=== PATIENT | female | born 1960 | race Caucasian/White ===

== ENCOUNTER 2024-09-13 21:43 | Emergency (ER) | payer SELFPAY ==
--- NOTE | 2024-09-13 22:02 | EKG_ITS ---
[address] [address] Test Date: 2024-09-13 Pat Name: Amy Vargas Department: [facility] Room: Gender: Female [facility] Manager: ANTONIO : 1960 Requested By: Order Number: [id number] Reading MD: Tim Vargas Measurements Intervals [place] Rate: 95 P: 44 RI: 180 QRS: -15 QRSD: 78 T: 8 QT: 364 QTc: 457 Interpretive Statements Normal sinus rhythm Nonspecific ST abnormality Electronically Signed On 09-14-2024 18:29:40 PDT by Tim Vargas
--- NOTE | 2024-09-13 22:02 | DI.RAD.S_ITS ---
PROCEDURE: XR CHEST 1V INDICATIONS: sepsis TECHNIQUE: One view of the chest was acquired. COMPARISON: None. FINDINGS: Surgical changes and devices: None. Lungs and pleura: Lungs are clear. No pleural effusions or pneumothorax. Mediastinum: Mediastinal contours appear normal. Heart size is normal. Bones and chest wall: No suspicious bony lesions. Overlying soft tissues appear unremarkable. IMPRESSION: No acute pulmonary process. Dictated by: Marjorie Hurst M.D. on 09/13/2024 at 22:57 Approved by: Marjorie Hurst M.D. on 09/13/2024 at 22:57
--- NOTE | 2024-09-13 22:02 | DI.CT.S_ITS ---
PROCEDURE: CT LE LT W CON INDICATIONS: Osteomyelitis/abscess TECHNIQUE: After the administration of intravenous contrast, 3 mm axial sections acquired of the lower extremity , with coronal and sagittal reformats. COMPARISON: None. FINDINGS: Image quality: Excellent. Bones: No visualized fracture. No suspicious osseous lesions. Soft tissues: Stranding is present within the subcutaneous fat. No organized fluid collection. No abnormal enhancement within the musculature. Vascular structures appear patent. Prominent soft tissue surrounding the distal 1st phalanx. IMPRESSION: Soft tissue stranding most consistent with infection/inflammation such as cellulitis. No organized fluid collection. 1st digit soft tissue edema. No underlying osseous abnormality to suggest osteomyelitis. Dictated by: Marjorie Hurst M.D. on 09/14/2024 at 0:00 Approved by: Marjorie Hurst M.D. on 09/14/2024 at 0:02
--- NOTE | 2024-09-13 22:02 | DI.CT.S_ITS ---
PROCEDURE: CT ABDOMEN PELVIS W CON INDICATIONS: vomiting TECHNIQUE: After the administration of intravenous contrast, axial sections acquired from the lung bases to the pubic symphysis. Coronal and sagittal reformats were performed. For radiation dose reduction, the following was used: automated exposure control, adjustment of mA and/or kV according to patient size. COMPARISON: [facility], CT, CT ANGIO CHEST PE PROTOCOL, 09/13/2024, 23:01. FINDINGS: Image quality: Diagnostic. Lower Chest: No significant findings. ABDOMEN: Liver: No solid mass. Gallbladder: Removed. Biliary ducts: No biliary dilation. Pancreas: No ductal dilation. Spleen: Size is within normal limits. Adrenal Glands: Nonspecific mild left gland thickening. Kidneys and Ureters: No hydronephrosis. No solid mass. No complex renal cystic lesion which requires follow up. Stomach and Bowel: Normal colonic caliber, without significant wall thickening. Scattered colonic stool. No inflammatory change. Peritoneum: No abnormal intraperitoneal fluid. No free air. Ventral Wall: No significant ventral hernia. Abdominal Nodes: No retroperitoneal or mesenteric adenopathy by size criteria. Vessels: Aorta and inferior vena cava are normal in size. PELVIS: Pelvic Organs: Unremarkable. Bladder: No bladder wall thickening, accounting for underdistention. Pelvic Nodes: No enlarged lymph nodes. Miscellaneous: No inguinal hernias are seen. Bones: No aggressive osseous abnormality. IMPRESSION: No acute intra-abdominal or pelvic process. Dictated by: Marjorie Hurst M.D. on 09/13/2024 at 23:58 Approved by: Marjorie Hurst M.D. on 09/14/2024 at 0:00
[2024-09-13 22:10] VITALS: BP 166/74; PULSE 105; RESP 18; TEMP 36.6; O2SAT 98; BMI 25.8
[2024-09-13 22:37] LABS: Add Manual Diff / Slide Review NO; Hematocrit 35.5 % (36-46); Hemoglobin 11.4 g/dL (12.0-16.0); Lymphocytes Absolute Auto 2600 /uL (1100-4500); Mean Corpuscular HGB Conc 32.1 % (30-36); Mean Corpuscular Hemoglobin 26.1 PG (26-34); Mean Corpuscular Volume 81.2 fL (80-100); Platelet Count 165 X10^3/uL (150-400)
[2024-09-13 22:42] LABS: INR 0.9 (0.9-1.3); Prothrombin Time 10.4 SECONDS (9.4-12.5)
[2024-09-13] MEDS: SODIUM CHLORIDE 0.9% 1,000 ML 1000 ML IV (22:42)
[2024-09-13 22:45] LABS: Base Excess VBG -2.5 mmol/L (0-4); HCO3 VBG 21 mmol/L (24-28); Oxygen Saturation VBG 92 % (70-75); PCO2 VBG 31.1 mmHg (45-50); PO2 VBG 59 mmHg (35-45); Total CO2 VBG 20 mmol/L (24-29); pH VBG 7.44 (7.33-7.43)
[2024-09-13 22:46] LABS: Alanine Aminotransferase 33 IU/L (<35); Albumin 3.9 g/dL (3.5-5.0); Albumin Globulin Ratio 1.3 (1.0-2.8); Blood Urea Nitrogen 17 mg/dL (7-17); Calcium 8.9 mg/dL (8.4-10.2); Carbon Dioxide 23 mmol/L (22-32); Chloride 104 mmol/L (98-107); Estimated Glomerular Filt Rate > 60 mL/min (>60); Globulin 3.0 g/dL (1.7-4.1); Glucose 433 mg/dL (70-99); Lactate (Lactic Acid) 1.5 mmol/L (0.7-2.1); Sodium 135 mmol/L (137-145); Total Protein 6.9 g/dL (6.3-8.2)
--- NOTE | 2024-09-13 22:49 | DI.CT.S_ITS ---
PROCEDURE: CT ANGIO CHEST PE PROTOCOL INDICATIONS: RO PE TECHNIQUE: After the administration of intravenous contrast, 2 mm thick sections acquired from the pulmonary apices to the posterior costophrenic angles. 3-dimensional maximum intensity projection (MIP) coronal and sagittal reformats were then acquired through the thorax. For radiation dose reduction, the following was used: automated exposure control, adjustment of mA and/or kV according to patient size. COMPARISON: None. FINDINGS: Image quality: Diagnostic. Pulmonary arteries: Pulmonary arteries are normal in size, and demonstrate no intraluminal filling defects to suggest central pulmonary embolism. Lower Neck: No enlarged lymph nodes. Thyroid: No thyroid nodules which require sonographic follow up, per consensus guidelines. Axillae: No enlarged lymph nodes. Chest Wall: Unremarkable. Bones: Unremarkable. Lungs and Pleura: No pneumothorax or pleural effusions. No consolidation or suspicious nodules. Heart: Heart size is normal. No pericardial effusion. Thoracic Vessels: No aortic aneurysm. Mediastinum and Debora: No enlarged lymph nodes. Esophagus: No wall thickening. No hiatal hernia. Upper Abdomen: Slight thickening of the left adrenal gland. IMPRESSION: No pulmonary embolus. No acute cardiopulmonary process. Dictated by: Marjorie Hurst M.D. on 09/13/2024 at 23:57 Approved by: Marjorie Hurst M.D. on 09/13/2024 at 23:58
[2024-09-13 22:51] LABS: HEMOLYSIS 58 (0-50)
[2024-09-13 22:52] LABS: Alkaline Phosphatase 82 U/L (38-126); Ketones (Beta-Hydroxybutyrate) 0.12 mmol/L (<0.27); PTT Partial Thromboplastin Tim 20 SECONDS (25.1-36.5); Potassium 4.0 mmol/L (3.4-5.1)
[2024-09-13 23:05] LABS: Procalcitonin 0.049 ng/mL (<0.5)
[2024-09-13 23:28] LABS: Coronavirus NL 63 Not Detected (Not Detect); SARS- CoV-2 Not Detected (Not Detecte)
[2024-09-13 23:37] VITALS: PULSE 187
[2024-09-13 23:43] VITALS: BP 208/84; PULSE 96; RESP 18; O2SAT 99
--- NOTE | 2024-09-13 23:47 | DI.US.S_ITS ---
PROCEDURE: US PERIPH VENOUS LOW EXTREM BI INDICATIONS: dimer, RO DVT TECHNIQUE: Real-time imaging, as well as color and pulse Doppler interrogation, were performed of the deep veins of both legs from the inguinal ligament to the popliteal fossa, with documentation of the visualized calf veins. COMPARISON: None. FINDINGS: Right: The common femoral, femoral, popliteal, and the visualized calf veins are normally compressible, and free of intraluminal thrombus. Color and pulse Doppler demonstrate normal phasic intravascular flow. There is normal augmentation response to distal compression maneuver. Left: The common femoral, femoral, popliteal, and the visualized calf veins are normally compressible, and free of intraluminal thrombus. Color and pulse Doppler demonstrate normal phasic intravascular flow. There is normal augmentation response to distal compression maneuver. IMPRESSION: No findings of deep venous thrombosis in either lower extremity. Dictated by: Marjorie Hurst M.D. on 09/14/2024 at 0:46 Approved by: Marjorie Hurst M.D. on 09/14/2024 at 0:46
[2024-09-13 23:57] LABS: Bilirubin Urine UA NEGATIVE (NEGATIVE); Color Urine UA YELLOW; Glucose Urine UA 3+ g/dL (Negative); Ketones Urine UA TRACE (NEGATIVE); Leukocyte Esterase Urine UA NEGATIVE (NEGATIVE); Nitrite Urine UA POSITIVE (Negative); Occult Blood Urine UA NEGATIVE (Negative); Protein Urine UA NEGATIVE (Negative); Specific Gravity Urine UA 1.015 (1.000-1.035); Urobilinogen Urine UA 0.2 E.U./dL (0.2)
[2024-09-14] VITALS (21 sets, daily range): BP systolic 114–191; BP diastolic 55–84; PULSE 67–97; RESP 10–26; O2SAT 92–99
[2024-09-14 00:04] LABS: Appearance Urine UA SL CLOUDY; pH Urine UA 5.5 (4.5-8.0)
[2024-09-14 00:09] LABS: Culture Indicated Urine Specimen Cultured
[2024-09-14] MEDS: SODIUM CHLORIDE 0.9% 1,000 ML 1000 ML IV (00:30)
[2024-09-14] MEDS: INSULIN REGULAR 100 UNIT/ML 3 ML VIAL 10 UNIT IV (00:31)
[2024-09-14] MEDS: ONDANSETRON 4 MG/2 ML INJ IV (04:47)
[2024-09-14] MEDS: VANCOMYCIN 1,500 MG/300 ML PIGGYBACK 200 MG IV (06:08)
--- NOTE | 2024-09-14 06:34 | ED.WOUNDLAC ---
HPI - Wound/Laceration <Gume Call MD - Last Filed: 09/14/24 06:37> General Chief Complaint: Wound/Laceration Stated Complaint: hyperglycemia, swelling in Lt foot Time Seen by Provider: 09/13/24 22:02 Source: patient Mode of arrival: Wheelchair History of Present Illness HPI narrative: PLEASANT 64-YEAR-OLD WOMAN WITH A HISTORY OF TYPE 1 DIABETES FOR MANY DECADES COMES TO THE ER BECAUSE OF PAIN AND SWELLING IN HER LEFT FOOT WELL A WOUND THERE. SHE DENIES ANY FEVER CHILLS OR SWEATS BUT ADMITS TO SOME NAUSEA BUT NO VOMITING. SHE HAS NO OTHER CONCERNS OR COMPLAINTS AT THIS TIME EXCEPT HER BLOOD SUGAR HAS BEEN MORE DIFFICULT TO CONTROL AT HOME. Related Data Previous Rx's ?Medication ?Instructions ?Recorded doxycycline hyclate 100 mg capsule 100 mg PO BID 1 week #14 caps 09/14/24 ciprofloxacin HCl 500 mg tablet 500 mg PO BID #14 tabs 09/16/24 Allergies Allergy/AdvReac Type Severity Reaction Status Date / Time latex Allergy Unknown Verified 09/13/24 22:10 morphine Allergy Unknown Verified 09/13/24 22:10 Penicillins Allergy Unknown Verified 09/13/24 22:10 Sulfa (Sulfonamide Allergy Unknown Verified 09/13/24 22:10 Antibiotics) hydromorphone (From Dilaudid) Allergy Verified 09/13/24 22:10 Patient History <Gume Call MD - Last Filed: 09/14/24 06:37> Social History Smoking Status: Never smoker Smoking Status: Never smoker Exam <Gume Call MD - Last Filed: 09/14/24 06:37> Initial Vital Signs Initial Vital Signs: Vital Signs Temperature 97.8 F 09/13/24 22:10 Pulse Rate 105 H 09/13/24 22:10 Respiratory Rate 18 09/13/24 22:10 Blood Pressure 166/74 H 09/13/24 22:10 Pulse Oximetry 98 09/13/24 22:10 Oxygen Delivery Method Room Air 09/13/24 22:10 Const General: cooperative, No in distress and ill appearing Limitations: mental status not altered [facility] Head: normal to inspection, normocephalic and atraumatic Ears: hearing grossly normal bilaterally Nose: external nose normal Face and sinus: normal facial exam Mouth: oral mucosae normal Eyes General: Yes appearance normal, both eyes and all related structures Neck Neck: normal visual inspection and No tender Resp Effort & Inspection: normal respiratory effort Auscultation: clear to auscultation bilaterally Cardio Rate: tachycardic Rhythm: regular rhythm Heart Sounds: S1 normal and S2 normal GI Inspection: normal to inspection Palpation: soft and No tender Skin Other: THERE IS A APPROXIMATELY 1 CM DIAMETER SCAB ON THE DORSUM OF THE LEFT FOOT IN BETWEEN THE 4TH AND 5TH DIGITS. THERE IS NO SURROUNDING ERYTHEMA OR WARMTH BUT THERE IS SOME PURULENT DRAINAGE EXPRESSED FROM THE WOUND. Neuro General: patient alert, patient awake and patient oriented x3 <Rafiq Nash DO - Last Filed: 09/14/24 08:21> Initial Vital Signs Initial Vital Signs: Vital Signs Temperature 97.8 F 09/13/24 22:10 Pulse Rate 105 H 09/13/24 22:10 Respiratory Rate 18 09/13/24 22:10 Blood Pressure 166/74 H 09/13/24 22:10 Pulse Oximetry 98 09/13/24 22:10 Oxygen Delivery Method Room Air 09/13/24 22:10 <Eloy Guajardo MD - Last Filed: 09/16/24 07:54> Initial Vital Signs Initial Vital Signs: Vital Signs Temperature 97.8 F 09/13/24 22:10 Pulse Rate 105 H 09/13/24 22:10 Respiratory Rate 18 09/13/24 22:10 Blood Pressure 166/74 H 09/13/24 22:10 Pulse Oximetry 98 09/13/24 22:10 Oxygen Delivery Method Room Air 09/13/24 22:10 Course <Gume Call MD - Last Filed: 09/14/24 06:37> Orders Ordered: Discontinued Medications Acetaminophen (Acetaminophen 325 Mg Tablet) 650 mg PO Q6H PRN PRN Reason: Fever/Mild Pain (1-3) Sodium Chloride (Normal Saline 0.9%) 1,000 mls @ 1,000 mls/hr IV CONT [facility] Last Infusion: 09/14/24 00:25 Dose: Infused Documented By: Admin: 09/13/24 22:42 Dose: 1,000 mls/hr Documented By: SOPHIA Sodium Chloride (Normal Saline 0.9%) 1,000 mls @ 1,000 mls/hr IV BOLUS ONE Stop: 09/14/24 00:13 Last Infusion: 09/14/24 02:44 Dose: Infused Documented By: Admin: 09/14/24 00:30 Dose: 1,000 mls/hr Documented By: AB Levofloxacin (Levaquin) 750 mg in 150 mls @ 100 mls/hr IV NOW ONE Stop: 09/14/24 04:12 Last Infusion: 09/14/24 04:53 Dose: Infused Documented By: Admin: 09/14/24 02:46 Dose: 100 mls/hr Documented By: AB Sodium Chloride (Normal Saline 0.9%) 1,000 mls @ 75 mls/hr IV CONT [facility] Last Admin: 09/14/24 03:53 Dose: Not Given Documented By: AB Piperacillin Sod/Tazobactam (Sod 3.375 gm/ Sodium Chloride) 100 mls @ 25 mls/hr IV Q8H [facility] Last Admin: 09/14/24 03:53 Dose: Not Given Documented By: AB Vancomycin HCl/Dextrose (Vancomycin) 1,500 mg in 300 mls @ 200 mls/hr IV NOW ONE Stop: 09/14/24 06:29 Last Infusion: 09/14/24 07:58 Dose: Infused Documented By: Admin: 09/14/24 06:08 Dose: 200 mls/hr Documented By: AB Insulin Human Lispro (Insulin Lispro 100 Unit/Ml 3ml Vial) 0 unit SUBCUT [facility]; Protocol Last Admin: 09/14/24 08:06 Dose: 3 unit Documented By: BEULAH Co-signed By: RB Insulin Human Regular (Insulin Regular 100 Unit/Ml 3 Ml Vial) 10 unit IV NOW ONE Stop: 09/13/24 23:45 Last Admin: 09/14/24 00:31 Dose: 10 unit Documented By: AB Co-signed By: HNG Naloxone HCl (Naloxone 0.4 Mg/Ml Vial) 0.2 mg IV Q2MIN PRN PRN Reason: Opiate Reversal Ondansetron HCl (Ondansetron 4 Mg/2 Ml Inj) 4 mg IV Q8HR PRN PRN Reason: Nausea And Vomiting Ondansetron HCl (Ondansetron 4 Mg/2 Ml Inj) 4 mg IV NOW ONE Stop: 09/14/24 04:15 Last Admin: 09/14/24 04:47 Dose: 4 mg Documented By: AB Vancomycin HCl (Vancomycin Per Pharmacy) 1 request MISC NOW PRN PRN Reason: diabetic foot infection Vital Signs Vital signs: Vital Signs - 8 hr 09/14/24 00:30 09/14/24 00:44 09/14/24 00:44 Pulse Rate 92 H 87 Respiratory Rate 26 H 19 Blood Pressure 153/80 H Pulse Oximetry 98 98 Oxygen Delivery Method 09/14/24 01:00 09/14/24 01:01 09/14/24 01:01 Pulse Rate 89 90 Respiratory Rate 18 17 Blood Pressure 118/56 L Pulse Oximetry 99 98 Oxygen Delivery Method 09/14/24 01:30 09/14/24 01:30 09/14/24 02:14 Pulse Rate 85 78 Respiratory Rate 16 15 Blood Pressure 139/67 Pulse Oximetry 99 98 Oxygen Delivery Method 09/14/24 02:30 09/14/24 02:30 09/14/24 03:00 Pulse Rate 68 Respiratory Rate 10 L Blood Pressure 114/55 L 114/56 L Pulse Oximetry 97 Oxygen Delivery Method 09/14/24 03:00 09/14/24 03:30 09/14/24 03:30 Pulse Rate 69 67 Respiratory Rate 11 L 14 Blood Pressure 117/56 L Pulse Oximetry 97 94 Oxygen Delivery Method Room Air 09/14/24 04:00 09/14/24 04:14 09/14/24 04:14 Pulse Rate 68 75 Respiratory Rate 19 14 Blood Pressure 164/74 H Pulse Oximetry 96 Oxygen Delivery Method 09/14/24 04:30 09/14/24 04:31 09/14/24 04:31 Pulse Rate 75 74 Respiratory Rate 15 13 Blood Pressure 140/68 Pulse Oximetry 96 96 Oxygen Delivery Method Room Air 09/14/24 05:00 09/14/24 05:00 09/14/24 05:30 Pulse Rate 77 Respiratory Rate 12 Blood Pressure 146/70 H 153/70 H Pulse Oximetry 95 Oxygen Delivery Method Room Air 09/14/24 05:30 09/14/24 06:00 09/14/24 06:00 Pulse Rate 77 77 Respiratory Rate 12 16 Blood Pressure 137/65 Pulse Oximetry 92 95 Oxygen Delivery Method 09/14/24 06:30 09/14/24 06:30 09/14/24 07:00 Pulse Rate 78 79 Respiratory Rate 16 16 Blood Pressure 118/56 L Pulse Oximetry 95 96 Oxygen Delivery Method 09/14/24 07:00 Pulse Rate Respiratory Rate Blood Pressure 132/67 Pulse Oximetry Oxygen Delivery Method <Rafiq Nahs, DO - Last Filed: 09/14/24 08:21> Orders Ordered: Discontinued Medications Acetaminophen (Acetaminophen 325 Mg Tablet) 650 mg PO Q6H PRN PRN Reason: Fever/Mild Pain (1-3) Sodium Chloride (Normal Saline 0.9%) 1,000 mls @ 1,000 mls/hr IV CONT [facility] Last Infusion: 09/14/24 00:25 Dose: Infused Documented By: Admin: 09/13/24 22:42 Dose: 1,000 mls/hr Documented By: SOPHIA Sodium Chloride (Normal Saline 0.9%) 1,000 mls @ 1,000 mls/hr IV BOLUS ONE Stop: 09/14/24 00:13 Last Infusion: 09/14/24 02:44 Dose: Infused Documented By: Admin: 09/14/24 00:30 Dose: 1,000 mls/hr Documented By: AB Levofloxacin (Levaquin) 750 mg in 150 mls @ 100 mls/hr IV NOW ONE Stop: 09/14/24 04:12 Last Infusion: 09/14/24 04:53 Dose: Infused Documented By: Admin: 09/14/24 02:46 Dose: 100 mls/hr Documented By: AB Sodium Chloride (Normal Saline 0.9%) 1,000 mls @ 75 mls/hr IV CONT [facility] Last Admin: 09/14/24 03:53 Dose: Not Given Documented By: AB Piperacillin Sod/Tazobactam (Sod 3.375 gm/ Sodium Chloride) 100 mls @ 25 mls/hr IV Q8H [facility] Last Admin: 09/14/24 03:53 Dose: Not Given Documented By: AB Vancomycin HCl/Dextrose (Vancomycin) 1,500 mg in 300 mls @ 200 mls/hr IV NOW ONE Stop: 09/14/24 06:29 Last Infusion: 09/14/24 07:58 Dose: Infused Documented By: Admin: 09/14/24 06:08 Dose: 200 mls/hr Documented By: AB Insulin Human Lispro (Insulin Lispro 100 Unit/Ml 3ml Vial) 0 unit [facility]UT [facility]; Protocol Last Admin: 09/14/24 08:06 Dose: 3 unit Documented By: BEULAH Co-signed By: RB Insulin Human Regular (Insulin Regular 100 Unit/Ml 3 Ml Vial) 10 unit IV NOW ONE Stop: 09/13/24 23:45 Last Admin: 09/14/24 00:31 Dose: 10 unit Documented By: Co-signed By: JOSEPH Naloxone HCl (Naloxone 0.4 Mg/Ml Vial) 0.2 mg IV Q2MIN PRN PRN Reason: Opiate Reversal Ondansetron HCl (Ondansetron 4 Mg/2 Ml Inj) 4 mg IV Q8HR PRN PRN Reason: Nausea And Vomiting Ondansetron HCl (Ondansetron 4 Mg/2 Ml Inj) 4 mg IV NOW ONE Stop: 09/14/24 04:15 Last Admin: 09/14/24 04:47 Dose: 4 mg Documented By: Vancomycin HCl (Vancomycin Per Pharmacy) 1 request MISC NOW PRN PRN Reason: diabetic foot infection Vital Signs Vital signs: Vital Signs - 8 hr 09/14/24 00:30 09/14/24 00:44 09/14/24 00:44 Pulse Rate 92 H 87 Respiratory Rate 26 H 19 Blood Pressure 153/80 H Pulse Oximetry 98 98 Oxygen Delivery Method 09/14/24 01:00 09/14/24 01:01 09/14/24 01:01 Pulse Rate 89 90 Respiratory Rate 18 17 Blood Pressure 118/56 L Pulse Oximetry 99 98 Oxygen Delivery Method 09/14/24 01:30 09/14/24 01:30 09/14/24 02:14 Pulse Rate 85 78 Respiratory Rate 16 15 Blood Pressure 139/67 Pulse Oximetry 99 98 Oxygen Delivery Method 09/14/24 02:30 09/14/24 02:30 09/14/24 03:00 Pulse Rate 68 Respiratory Rate 10 L Blood Pressure 114/55 L 114/56 L Pulse Oximetry 97 Oxygen Delivery Method 09/14/24 03:00 09/14/24 03:30 09/14/24 03:30 Pulse Rate 69 67 Respiratory Rate 11 L 14 Blood Pressure 117/56 L Pulse Oximetry 97 94 Oxygen Delivery Method Room Air 09/14/24 04:00 09/14/24 04:14 09/14/24 04:14 Pulse Rate 68 75 Respiratory Rate 19 14 Blood Pressure 164/74 H Pulse Oximetry 96 Oxygen Delivery Method 09/14/24 04:30 09/14/24 04:31 09/14/24 04:31 Pulse Rate 75 74 Respiratory Rate 15 13 Blood Pressure 140/68 Pulse Oximetry 96 96 Oxygen Delivery Method Room Air 09/14/24 05:00 09/14/24 05:00 09/14/24 05:30 Pulse Rate 77 Respiratory Rate 12 Blood Pressure 146/70 H 153/70 H Pulse Oximetry 95 Oxygen Delivery Method Room Air 09/14/24 05:30 09/14/24 06:00 09/14/24 06:00 Pulse Rate 77 77 Respiratory Rate 12 16 Blood Pressure 137/65 Pulse Oximetry 92 95 Oxygen Delivery Method 09/14/24 06:30 09/14/24 06:30 09/14/24 07:00 Pulse Rate 78 79 Respiratory Rate 16 16 Blood Pressure 118/56 L Pulse Oximetry 95 96 Oxygen Delivery Method 09/14/24 07:00 Pulse Rate Respiratory Rate Blood Pressure 132/67 Pulse Oximetry Oxygen Delivery Method <Eloy Guajardo MD - Last Filed: 09/16/24 07:54> Orders Ordered: Discontinued Medications Acetaminophen (Acetaminophen 325 Mg Tablet) 650 mg PO Q6H PRN PRN Reason: Fever/Mild Pain (1-3) Sodium Chloride (Normal Saline 0.9%) 1,000 mls @ 1,000 mls/hr IV CONT [facility] Last Infusion: 09/14/24 00:25 Dose: Infused Documented By: Admin: 09/13/24 22:42 Dose: 1,000 mls/hr Documented By: SOPHIA Sodium Chloride (Normal Saline 0.9%) 1,000 mls @ 1,000 mls/hr IV BOLUS ONE Stop: 09/14/24 00:13 Last Infusion: 09/14/24 02:44 Dose: Infused Documented By: Admin: 09/14/24 00:30 Dose: 1,000 mls/hr Documented By: AB Levofloxacin (Levaquin) 750 mg in 150 mls @ 100 mls/hr IV NOW ONE Stop: 09/14/24 04:12 Last Infusion: 09/14/24 04:53 Dose: Infused Documented By: Admin: 09/14/24 02:46 Dose: 100 mls/hr Documented By: AB Sodium Chloride (Normal Saline 0.9%) 1,000 mls @ 75 mls/hr IV CONT [facility] Last Admin: 09/14/24 03:53 Dose: Not Given Documented By: AB Piperacillin Sod/Tazobactam (Sod 3.375 gm/ Sodium Chloride) 100 mls @ 25 mls/hr IV Q8H [facility] Last Admin: 09/14/24 03:53 Dose: Not Given Documented By: AB Vancomycin HCl/Dextrose (Vancomycin) 1,500 mg in 300 mls @ 200 mls/hr IV NOW ONE Stop: 09/14/24 06:29 Last Infusion: 09/14/24 07:58 Dose: Infused Documented By: Admin: 09/14/24 06:08 Dose: 200 mls/hr Documented By: Insulin Human Lispro (Insulin Lispro 100 Unit/Ml 3ml Vial) 0 unit SUBCUT [facility]; Protocol Last Admin: 09/14/24 08:06 Dose: 3 unit Documented By: BEULAH Co-signed By: RB Insulin Human Regular (Insulin Regular 100 Unit/Ml 3 Ml Vial) 10 unit IV NOW ONE Stop: 09/13/24 23:45 Last Admin: 09/14/24 00:31 Dose: 10 unit Documented By: Co-signed By: JOSEPH Naloxone HCl (Naloxone 0.4 Mg/Ml Vial) 0.2 mg IV Q2MIN PRN PRN Reason: Opiate Reversal Ondansetron HCl (Ondansetron 4 Mg/2 Ml Inj) 4 mg IV Q8HR PRN PRN Reason: Nausea And Vomiting Ondansetron HCl (Ondansetron 4 Mg/2 Ml Inj) 4 mg IV NOW ONE Stop: 09/14/24 04:15 Last Admin: 09/14/24 04:47 Dose: 4 mg Documented By: Vancomycin HCl (Vancomycin Per Pharmacy) 1 request MISC NOW PRN PRN Reason: diabetic foot infection Vital Signs Vital signs: Vital Signs - 8 hr 09/14/24 00:30 09/14/24 00:44 09/14/24 00:44 Pulse Rate 92 H 87 Respiratory Rate 26 H 19 Blood Pressure 153/80 H Pulse Oximetry 98 98 Oxygen Delivery Method 09/14/24 01:00 09/14/24 01:01 09/14/24 01:01 Pulse Rate 89 90 Respiratory Rate 18 17 Blood Pressure 118/56 L Pulse Oximetry 99 98 Oxygen Delivery Method 09/14/24 01:30 09/14/24 01:30 09/14/24 02:14 Pulse Rate 85 78 Respiratory Rate 16 15 Blood Pressure 139/67 Pulse Oximetry 99 98 Oxygen Delivery Method 09/14/24 02:30 09/14/24 02:30 09/14/24 03:00 Pulse Rate 68 Respiratory Rate 10 L Blood Pressure 114/55 L 114/56 L Pulse Oximetry 97 Oxygen Delivery Method 09/14/24 03:00 09/14/24 03:30 09/14/24 03:30 Pulse Rate 69 67 Respiratory Rate 11 L 14 Blood Pressure 117/56 L Pulse Oximetry 97 94 Oxygen Delivery Method Room Air 09/14/24 04:00 09/14/24 04:14 09/14/24 04:14 Pulse Rate 68 75 Respiratory Rate 19 14 Blood Pressure 164/74 H Pulse Oximetry 96 Oxygen Delivery Method 09/14/24 04:30 09/14/24 04:31 09/14/24 04:31 Pulse Rate 75 74 Respiratory Rate 15 13 Blood Pressure 140/68 Pulse Oximetry 96 96 Oxygen Delivery Method Room Air 09/14/24 05:00 09/14/24 05:00 09/14/24 05:30 Pulse Rate 77 Respiratory Rate 12 Blood Pressure 146/70 H 153/70 H Pulse Oximetry 95 Oxygen Delivery Method Room Air 09/14/24 05:30 09/14/24 06:00 09/14/24 06:00 Pulse Rate 77 77 Respiratory Rate 12 16 Blood Pressure 137/65 Pulse Oximetry 92 95 Oxygen Delivery Method 09/14/24 06:30 09/14/24 06:30 09/14/24 07:00 Pulse Rate 78 79 Respiratory Rate 16 16 Blood Pressure 118/56 L Pulse Oximetry 95 96 Oxygen Delivery Method 09/14/24 07:00 Pulse Rate Respiratory Rate Blood Pressure 132/67 Pulse Oximetry Oxygen Delivery Method MDM - Wound/Laceration <Gume Call MD - Last Filed: 09/14/24 06:37> Lab Data 09/13/24 22:24 09/13/24 22:24 Labs: Lab Results 09/13/24 09/13/24 09/13/24 Range/Units 22:17 22:24 22:34 WBC 11.2 H (4.5-11.0) X10^3/uL RBC 4.38 (4.0-5.2) X10^6/uL Hgb 11.4 L (12.0-16.0) g/dL Hct 35.5 L (36-46) % MCV 81.2 (80-100) fL MCH 26.1 (26-34) PG MCHC 32.1 (30-36) % RDW 14.8 (11.6-14.8) % Plt Count 165 (150-400) X10^3/uL Neut % (Auto) 67.2 (50-75) % Lymph % (Auto) 22.7 L (25-40) % [place] % (Auto) 6.9 (3-14) % Eos % (Auto) 2.2 (2-4) % Baso % (Auto) 1.0 (0-2) % Neut # (Auto) 7600 H (0308-6164) /uL Lymph # (Auto) 2600 (7477-8725) /uL [place] # (Auto) 800 (0-900) /uL Eos # (Auto) 300 (0-450) /uL Baso # (Auto) 100 (0-100) /uL PT 10.4 (9.4-12.5) SECONDS INR 0.9 (0.9-1.3) APTT 20 L (25.1-36.5) SECONDS D-Dimer 824 H (<500) ng/ml VBG pH (7.33-7.43) VBG pCO2 (45-50) mmHg VBG pO2 (35-45) mmHg VBG HCO3 (24-28) mmol/L VBG Total CO2 (24-29) mmol/L VBG O2 Saturation (70-75) % VBG Base Excess (0-4) mmol/L Sodium 135 L (137-145) mmol/L Potassium 4.0 (3.4-5.1) mmol/L Chloride 104 (98-107) mmol/L Carbon Dioxide 23 (22-32) mmol/L BUN 17 (7-17) mg/dL Creatinine 0.79 (0.52-1.04) mg/dL Estimated GFR > 60 (>60) mL/min BUN/Creatinine Ratio 21.5 (6-22) Glucose 433 H (70-99) mg/dL POC Whole Bld Glucose 434 H (70-99) mg/dL Lactate 1.5 (0.7-2.1) mmol/L Calcium 8.9 (8.4-10.2) mg/dL Total Bilirubin 0.5 (0.2-1.3) mg/dL AST 40 H (14-36) IU/L ALT 33 (<35) IU/L Alkaline Phosphatase 82 (38-126) U/L Total Protein 6.9 (6.3-8.2) g/dL Albumin 3.9 (3.5-5.0) g/dL Globulin 3.0 (1.7-4.1) g/dL Albumin/Globulin Ratio 1.3 (1.0-2.8) Procalcitonin 0.049 (<0.5) ng/mL Urine Color Urine Appearance Urine pH (4.5-8.0) Ur Specific [place] (1.000-1.035) Urine Protein (Negative) Urine Glucose (UA) (Negative) g/dL Urine Ketones (NEGATIVE) Urine Occult Blood (Negative) Urine Nitrate (Negative) Urine Bilirubin (NEGATIVE) Urine Urobilinogen (0.2) E.U./dL Ur Leukocyte Esterase (NEGATIVE) Urine RBC (0-5/HPF) Urine WBC (0-5/HPF) Ur Squamous Epith Cells (0-5/HPF) Urine Bacteria (None) Hyaline Casts (None) Ur Culture Indicated? Vol Urine Centrifuged Ketones 0.12 (<0.27) mmol/L Chlamy pneumoniae PCR Not detected (Not Detect) Adenovirus (PCR) Not detected (Not Detect) B. pertussis DNA (PCR) Not detected (Not Detect) B.parapertussis DNA PCR Not detected (Not Detecte) Coronavirus OC43 (PCR) Not detected (Not Detect) Coronavirus HKU1 (PCR) Not detected (Not Detect) Coronavirus 229E (PCR) Not detected (Not Detect) SARS-CoV-2 (PCR) Not detected (Not Detecte) Coronavirus NL63 (PCR) Not detected (Not Detect) Human Metapneumovir PCR Not detected (Not Detect) Influenza Type A (PCR) Not detected (Not Detect) Influenza Type B (PCR) Not detected (Not Detect) M. pneumoniae (PCR) Not detected (Not Detect) Parainfluenza 1 (PCR) Not detected (Not Detect) Parainfluenza 2 (PCR) Not detected (Not Detect) Parainfluenza 3 (PCR) Not detected (Not Detect) Parainfluenza 4 (PCR) Not detected (Not Detect) RSV (PCR) Not detected (Not Detect) Entero/Rhino (PCR) Not detected (Not Detect) 09/13/24 09/13/24 09/14/24 Range/Units 22:41 23:30 01:47 WBC (4.5-11.0) X10^3/uL RBC (4.0-5.2) X10^6/uL Hgb (12.0-16.0) g/dL Hct (36-46) % MCV (80-100) fL MCH (26-34) PG MCHC (30-36) % RDW (11.6-14.8) % Plt Count (150-400) X10^3/uL Neut % (Auto) (50-75) % Lymph % (Auto) (25-40) % [place] % (Auto) (3-14) % Eos % (Auto) (2-4) % Baso % (Auto) (0-2) % Neut # (Auto) (5027-4411) /uL Lymph # (Auto) (0582-0601) /uL [place] # (Auto) (0-900) /uL Eos # (Auto) (0-450) /uL Baso # (Auto) (0-100) /uL PT (9.4-12.5) SECONDS INR (0.9-1.3) APTT (25.1-36.5) SECONDS D-Dimer (<500) ng/ml VBG pH 7.44 H (7.33-7.43) VBG pCO2 31.1 L (45-50) mmHg VBG pO2 59 H (35-45) mmHg VBG HCO3 21 L (24-28) mmol/L VBG Total CO2 20 L (24-29) mmol/L VBG O2 Saturation 92 H (70-75) % VBG Base Excess -2.5 L (0-4) mmol/L Sodium (137-145) mmol/L Potassium (3.4-5.1) mmol/L Chloride (98-107) mmol/L Carbon Dioxide (22-32) mmol/L BUN (7-17) mg/dL Creatinine (0.52-1.04) mg/dL Estimated GFR (>60) mL/min BUN/Creatinine Ratio (6-22) Glucose (70-99) mg/dL POC Whole Bld Glucose 213 H D (70-99) mg/dL Lactate (0.7-2.1) mmol/L Calcium (8.4-10.2) mg/dL Total Bilirubin (0.2-1.3) mg/dL AST (14-36) IU/L ALT (<35) IU/L Alkaline Phosphatase (38-126) U/L Total Protein (6.3-8.2) g/dL Albumin (3.5-5.0) g/dL Globulin (1.7-4.1) g/dL Albumin/Globulin Ratio (1.0-2.8) Procalcitonin (<0.5) ng/mL Urine Color Yellow Urine Appearance Sl cloudy Urine pH 5.5 (4.5-8.0) Ur Specific [place] 1.015 (1.000-1.035) Urine Protein Negative (Negative) Urine Glucose (UA) 3+ H (Negative) g/dL Urine Ketones Trace H (NEGATIVE) Urine Occult Blood Negative (Negative) Urine Nitrate Positive H (Negative) Urine Bilirubin Negative (NEGATIVE) Urine Urobilinogen 0.2 (0.2) E.U./dL Ur Leukocyte Esterase Negative (NEGATIVE) Urine RBC 0-1/hpf (0-5/HPF) Urine WBC 1-5/hpf (0-5/HPF) Ur Squamous Epith Cells 5-10 /hpf H (0-5/HPF) Urine Bacteria Many (>30) H (None) Hyaline Casts 1-5/lpf (None) Ur Culture Indicated? Specimen cultured Vol Urine Centrifuged 10ml (spun) Ketones (<0.27) mmol/L Chlamy pneumoniae PCR (Not Detect) Adenovirus (PCR) (Not Detect) B. pertussis DNA (PCR) (Not Detect) B.parapertussis DNA PCR (Not Detecte) Coronavirus OC43 (PCR) (Not Detect) Coronavirus HKU1 (PCR) (Not Detect) Coronavirus 229E (PCR) (Not Detect) SARS-CoV-2 (PCR) (Not Detecte) Coronavirus NL63 (PCR) (Not Detect) Human Metapneumovir PCR (Not Detect) Influenza Type A (PCR) (Not Detect) Influenza Type B (PCR) (Not Detect) M. pneumoniae (PCR) (Not Detect) Parainfluenza 1 (PCR) (Not Detect) Parainfluenza 2 (PCR) (Not Detect) Parainfluenza 3 (PCR) (Not Detect) Parainfluenza 4 (PCR) (Not Detect) RSV (PCR) (Not Detect) Entero/Rhino (PCR) (Not Detect) 09/14/24 09/14/24 Range/Units 03:16 07:55 WBC (4.5-11.0) X10^3/uL RBC (4.0-5.2) X10^6/uL Hgb (12.0-16.0) g/dL Hct (36-46) % MCV (80-100) fL MCH (26-34) PG MCHC (30-36) % RDW (11.6-14.8) % Plt Count (150-400) X10^3/uL Neut % (Auto) (50-75) % Lymph % (Auto) (25-40) % [place] % (Auto) (3-14) % Eos % (Auto) (2-4) % Baso % (Auto) (0-2) % Neut # (Auto) (1753-8297) /uL Lymph # (Auto) (6943-3257) /uL [place] # (Auto) (0-900) /uL Eos # (Auto) (0-450) /uL Baso # (Auto) (0-100) /uL PT (9.4-12.5) SECONDS INR (0.9-1.3) APTT (25.1-36.5) SECONDS D-Dimer (<500) ng/ml VBG pH (7.33-7.43) VBG pCO2 (45-50) mmHg VBG pO2 (35-45) mmHg VBG HCO3 (24-28) mmol/L VBG Total CO2 (24-29) mmol/L VBG O2 Saturation (70-75) % VBG Base Excess (0-4) mmol/L Sodium (137-145) mmol/L Potassium (3.4-5.1) mmol/L Chloride (98-107) mmol/L Carbon Dioxide (22-32) mmol/L BUN (7-17) mg/dL Creatinine (0.52-1.04) mg/dL Estimated GFR (>60) mL/min BUN/Creatinine Ratio (6-22) Glucose (70-99) mg/dL POC Whole Bld Glucose 176 H 200 H (70-99) mg/dL Lactate (0.7-2.1) mmol/L Calcium (8.4-10.2) mg/dL Total Bilirubin (0.2-1.3) mg/dL AST (14-36) IU/L ALT (<35) IU/L Alkaline Phosphatase (38-126) U/L Total Protein (6.3-8.2) g/dL Albumin (3.5-5.0) g/dL Globulin (1.7-4.1) g/dL Albumin/Globulin Ratio (1.0-2.8) Procalcitonin (<0.5) ng/mL Urine Color Urine Appearance Urine pH (4.5-8.0) Ur Specific [place] (1.000-1.035) Urine Protein (Negative) Urine Glucose (UA) (Negative) g/dL Urine Ketones (NEGATIVE) Urine Occult Blood (Negative) Urine Nitrate (Negative) Urine Bilirubin (NEGATIVE) Urine Urobilinogen (0.2) E.U./dL Ur Leukocyte Esterase (NEGATIVE) Urine RBC (0-5/HPF) Urine WBC (0-5/HPF) Ur Squamous Epith Cells (0-5/HPF) Urine Bacteria (None) Hyaline Casts (None) Ur Culture Indicated? Vol Urine Centrifuged Ketones (<0.27) mmol/L Chlamy pneumoniae PCR (Not Detect) Adenovirus (PCR) (Not Detect) B. pertussis DNA (PCR) (Not Detect) B.parapertussis DNA PCR (Not Detecte) Coronavirus OC43 (PCR) (Not Detect) Coronavirus HKU1 (PCR) (Not Detect) Coronavirus 229E (PCR) (Not Detect) SARS-CoV-2 (PCR) (Not Detecte) Coronavirus NL63 (PCR) (Not Detect) Human Metapneumovir PCR (Not Detect) Influenza Type A (PCR) (Not Detect) Influenza Type B (PCR) (Not Detect) M. pneumoniae (PCR) (Not Detect) Parainfluenza 1 (PCR) (Not Detect) Parainfluenza 2 (PCR) (Not Detect) Parainfluenza 3 (PCR) (Not Detect) Parainfluenza 4 (PCR) (Not Detect) RSV (PCR) (Not Detect) Entero/Rhino (PCR) (Not Detect) ECG Data Interpretation: NORMAL SINUS RHYTHM. RATE 95. <Rafiq Nash, DO - Last Filed: 09/14/24 08:21> Lab Data Labs: Lab Results 09/13/24 09/13/24 09/13/24 Range/Units 22:17 22:24 22:34 WBC 11.2 H (4.5-11.0) X10^3/uL RBC 4.38 (4.0-5.2) X10^6/uL Hgb 11.4 L (12.0-16.0) g/dL Hct 35.5 L (36-46) % MCV 81.2 (80-100) fL MCH 26.1 (26-34) PG MCHC 32.1 (30-36) % RDW 14.8 (11.6-14.8) % Plt Count 165 (150-400) X10^3/uL Neut % (Auto) 67.2 (50-75) % Lymph % (Auto) 22.7 L (25-40) % [place] % (Auto) 6.9 (3-14) % Eos % (Auto) 2.2 (2-4) % Baso % (Auto) 1.0 (0-2) % Neut # (Auto) 7600 H (8771-8513) /uL Lymph # (Auto) 2600 (4901-2002) /uL [place] # (Auto) 800 (0-900) /uL Eos # (Auto) 300 (0-450) /uL Baso # (Auto) 100 (0-100) /uL PT 10.4 (9.4-12.5) SECONDS INR 0.9 (0.9-1.3) APTT 20 L (25.1-36.5) SECONDS D-Dimer 824 H (<500) ng/ml VBG pH (7.33-7.43) VBG pCO2 (45-50) mmHg VBG pO2 (35-45) mmHg VBG HCO3 (24-28) mmol/L VBG Total CO2 (24-29) mmol/L VBG O2 Saturation (70-75) % VBG Base Excess (0-4) mmol/L Sodium 135 L (137-145) mmol/L Potassium 4.0 (3.4-5.1) mmol/L Chloride 104 (98-107) mmol/L Carbon Dioxide 23 (22-32) mmol/L BUN 17 (7-17) mg/dL Creatinine 0.79 (0.52-1.04) mg/dL Estimated GFR > 60 (>60) mL/min BUN/Creatinine Ratio 21.5 (6-22) Glucose 433 H (70-99) mg/dL POC Whole Bld Glucose 434 H (70-99) mg/dL Lactate 1.5 (0.7-2.1) mmol/L Calcium 8.9 (8.4-10.2) mg/dL Total Bilirubin 0.5 (0.2-1.3) mg/dL AST 40 H (14-36) IU/L ALT 33 (<35) IU/L Alkaline Phosphatase 82 (38-126) U/L Total Protein 6.9 (6.3-8.2) g/dL Albumin 3.9 (3.5-5.0) g/dL Globulin 3.0 (1.7-4.1) g/dL Albumin/Globulin Ratio 1.3 (1.0-2.8) Procalcitonin 0.049 (<0.5) ng/mL Urine Color Urine Appearance Urine pH (4.5-8.0) Ur Specific [place] (1.000-1.035) Urine Protein (Negative) Urine Glucose (UA) (Negative) g/dL Urine Ketones (NEGATIVE) Urine Occult Blood (Negative) Urine Nitrate (Negative) Urine Bilirubin (NEGATIVE) Urine Urobilinogen (0.2) E.U./dL Ur Leukocyte Esterase (NEGATIVE) Urine RBC (0-5/HPF) Urine WBC (0-5/HPF) Ur Squamous Epith Cells (0-5/HPF) Urine Bacteria (None) Hyaline Casts (None) Ur Culture Indicated? Vol Urine Centrifuged Ketones 0.12 (<0.27) mmol/L Chlamy pneumoniae PCR Not detected (Not Detect) Adenovirus (PCR) Not detected (Not Detect) B. pertussis DNA (PCR) Not detected (Not Detect) B.parapertussis DNA PCR Not detected (Not Detecte) Coronavirus OC43 (PCR) Not detected (Not Detect) Coronavirus HKU1 (PCR) Not detected (Not Detect) Coronavirus 229E (PCR) Not detected (Not Detect) SARS-CoV-2 (PCR) Not detected (Not Detecte) Coronavirus NL63 (PCR) Not detected (Not Detect) Human Metapneumovir PCR Not detected (Not Detect) Influenza Type A (PCR) Not detected (Not Detect) Influenza Type B (PCR) Not detected (Not Detect) M. pneumoniae (PCR) Not detected (Not Detect) Parainfluenza 1 (PCR) Not detected (Not Detect) Parainfluenza 2 (PCR) Not detected (Not Detect) Parainfluenza 3 (PCR) Not detected (Not Detect) Parainfluenza 4 (PCR) Not detected (Not Detect) RSV (PCR) Not detected (Not Detect) Entero/Rhino (PCR) Not detected (Not Detect) 09/13/24 09/13/24 09/14/24 Range/Units 22:41 23:30 01:47 WBC (4.5-11.0) X10^3/uL RBC (4.0-5.2) X10^6/uL Hgb (12.0-16.0) g/dL Hct (36-46) % MCV (80-100) fL MCH (26-34) PG MCHC (30-36) % RDW (11.6-14.8) % Plt Count (150-400) X10^3/uL Neut % (Auto) (50-75) % Lymph % (Auto) (25-40) % [place] % (Auto) (3-14) % Eos % (Auto) (2-4) % Baso % (Auto) (0-2) % Neut # (Auto) (3160-5138) /uL Lymph # (Auto) (8814-3190) /uL [place] # (Auto) (0-900) /uL Eos # (Auto) (0-450) /uL Baso # (Auto) (0-100) /uL PT (9.4-12.5) SECONDS INR (0.9-1.3) APTT (25.1-36.5) SECONDS D-Dimer (<500) ng/ml VBG pH 7.44 H (7.33-7.43) VBG pCO2 31.1 L (45-50) mmHg VBG pO2 59 H (35-45) mmHg VBG HCO3 21 L (24-28) mmol/L VBG Total CO2 20 L (24-29) mmol/L VBG O2 Saturation 92 H (70-75) % VBG Base Excess -2.5 L (0-4) mmol/L Sodium (137-145) mmol/L Potassium (3.4-5.1) mmol/L Chloride (98-107) mmol/L Carbon Dioxide (22-32) mmol/L BUN (7-17) mg/dL Creatinine (0.52-1.04) mg/dL Estimated GFR (>60) mL/min BUN/Creatinine Ratio (6-22) Glucose (70-99) mg/dL POC Whole Bld Glucose 213 H D (70-99) mg/dL Lactate (0.7-2.1) mmol/L Calcium (8.4-10.2) mg/dL Total Bilirubin (0.2-1.3) mg/dL AST (14-36) IU/L ALT (<35) IU/L Alkaline Phosphatase (38-126) U/L Total Protein (6.3-8.2) g/dL Albumin (3.5-5.0) g/dL Globulin (1.7-4.1) g/dL Albumin/Globulin Ratio (1.0-2.8) Procalcitonin (<0.5) ng/mL Urine Color Yellow Urine Appearance Sl cloudy Urine pH 5.5 (4.5-8.0) Ur Specific [place] 1.015 (1.000-1.035) Urine Protein Negative (Negative) Urine Glucose (UA) 3+ H (Negative) g/dL Urine Ketones Trace H (NEGATIVE) Urine Occult Blood Negative (Negative) Urine Nitrate Positive H (Negative) Urine Bilirubin Negative (NEGATIVE) Urine Urobilinogen 0.2 (0.2) E.U./dL Ur Leukocyte Esterase Negative (NEGATIVE) Urine RBC 0-1/hpf (0-5/HPF) Urine WBC 1-5/hpf (0-5/HPF) Ur Squamous Epith Cells 5-10 /hpf H (0-5/HPF) Urine Bacteria Many (>30) H (None) Hyaline Casts 1-5/lpf (None) Ur Culture Indicated? Specimen cultured Vol Urine Centrifuged 10ml (spun) Ketones (<0.27) mmol/L Chlamy pneumoniae PCR (Not Detect) Adenovirus (PCR) (Not Detect) B. pertussis DNA (PCR) (Not Detect) B.parapertussis DNA PCR (Not Detecte) Coronavirus OC43 (PCR) (Not Detect) Coronavirus HKU1 (PCR) (Not Detect) Coronavirus 229E (PCR) (Not Detect) SARS-CoV-2 (PCR) (Not Detecte) Coronavirus NL63 (PCR) (Not Detect) Human Metapneumovir PCR (Not Detect) Influenza Type A (PCR) (Not Detect) Influenza Type B (PCR) (Not Detect) M. pneumoniae (PCR) (Not Detect) Parainfluenza 1 (PCR) (Not Detect) Parainfluenza 2 (PCR) (Not Detect) Parainfluenza 3 (PCR) (Not Detect) Parainfluenza 4 (PCR) (Not Detect) RSV (PCR) (Not Detect) Entero/Rhino (PCR) (Not Detect) 09/14/24 09/14/24 Range/Units 03:16 07:55 WBC (4.5-11.0) X10^3/uL RBC (4.0-5.2) X10^6/uL Hgb (12.0-16.0) g/dL Hct (36-46) % MCV (80-100) fL MCH (26-34) PG MCHC (30-36) % RDW (11.6-14.8) % Plt Count (150-400) X10^3/uL Neut % (Auto) (50-75) % Lymph % (Auto) (25-40) % [place] % (Auto) (3-14) % Eos % (Auto) (2-4) % Baso % (Auto) (0-2) % Neut # (Auto) (5905-1573) /uL Lymph # (Auto) (9372-2138) /uL [place] # (Auto) (0-900) /uL Eos # (Auto) (0-450) /uL Baso # (Auto) (0-100) /uL PT (9.4-12.5) SECONDS INR (0.9-1.3) APTT (25.1-36.5) SECONDS D-Dimer (<500) ng/ml VBG pH (7.33-7.43) VBG pCO2 (45-50) mmHg VBG pO2 (35-45) mmHg VBG HCO3 (24-28) mmol/L VBG Total CO2 (24-29) mmol/L VBG O2 Saturation (70-75) % VBG Base Excess (0-4) mmol/L Sodium (137-145) mmol/L Potassium (3.4-5.1) mmol/L Chloride (98-107) mmol/L Carbon Dioxide (22-32) mmol/L BUN (7-17) mg/dL Creatinine (0.52-1.04) mg/dL Estimated GFR (>60) mL/min BUN/Creatinine Ratio (6-22) Glucose (70-99) mg/dL POC Whole Bld Glucose 176 H 200 H (70-99) mg/dL Lactate (0.7-2.1) mmol/L Calcium (8.4-10.2) mg/dL Total Bilirubin (0.2-1.3) mg/dL AST (14-36) IU/L ALT (<35) IU/L Alkaline Phosphatase (38-126) U/L Total Protein (6.3-8.2) g/dL Albumin (3.5-5.0) g/dL Globulin (1.7-4.1) g/dL Albumin/Globulin Ratio (1.0-2.8) Procalcitonin (<0.5) ng/mL Urine Color Urine Appearance Urine pH (4.5-8.0) Ur Specific [place] (1.000-1.035) Urine Protein (Negative) Urine Glucose (UA) (Negative) g/dL Urine Ketones (NEGATIVE) Urine Occult Blood (Negative) Urine Nitrate (Negative) Urine Bilirubin (NEGATIVE) Urine Urobilinogen (0.2) E.U./dL Ur Leukocyte Esterase (NEGATIVE) Urine RBC (0-5/HPF) Urine WBC (0-5/HPF) Ur Squamous Epith Cells (0-5/HPF) Urine Bacteria (None) Hyaline Casts (None) Ur Culture Indicated? Vol Urine Centrifuged Ketones (<0.27) mmol/L Chlamy pneumoniae PCR (Not Detect) Adenovirus (PCR) (Not Detect) B. pertussis DNA (PCR) (Not Detect) B.parapertussis DNA PCR (Not Detecte) Coronavirus OC43 (PCR) (Not Detect) Coronavirus HKU1 (PCR) (Not Detect) Coronavirus 229E (PCR) (Not Detect) SARS-CoV-2 (PCR) (Not Detecte) Coronavirus NL63 (PCR) (Not Detect) Human Metapneumovir PCR (Not Detect) Influenza Type A (PCR) (Not Detect) Influenza Type B (PCR) (Not Detect) M. pneumoniae (PCR) (Not Detect) Parainfluenza 1 (PCR) (Not Detect) Parainfluenza 2 (PCR) (Not Detect) Parainfluenza 3 (PCR) (Not Detect) Parainfluenza 4 (PCR) (Not Detect) RSV (PCR) (Not Detect) Entero/Rhino (PCR) (Not Detect) MDM Narrative Medical decision making narrative: Dr. Nash: Received sign-out by Dr. Call, patient is a 64-year-old female with a history of noncompliant diabetes, presenting for wound to the left foot between the 3rd and 4th toe, workup so far has shown patient with cellulitis, patient did have ultrasound which was negative for DVT, patient also without any findings of PE on chest CTA, according to Dr. Call, patient is pending MRI to rule out osteomyelitis, antibiotics have already been ordered. 0815: Patient was re-evaluated, she is resting comfortably in the stretcher, on exam she has a very small ulcer with very mild erythema to the top of the foot in between the 3rd and 4th toe. There is no crepitus. CT scan of the lower extremity did not show any signs of free air or osteomyelitis, ultrasound was also negative. Patient did have slight leukocytosis of 11.2 however not meeting any other sirs or sepsis criteria. Patient states that she would rather go home with oral antibiotics and follow up with primary care as needed. CT scan did not show any signs of osteomyelitis, she is not meeting any other sepsis or sirs criteria. I did offer her to stay in the emergency department to obtain the MRI as well as possible vascular ultrasound however she states that she has ?similar to be for her . She states that she will return if symptoms are worse, she was given strict return precautions she verbalized understanding of this and agrees to being discharged home with outpatient follow up <Eloy Guajardo MD - Last Filed: 09/16/24 07:54> Lab Data Labs: Lab Results 09/13/24 09/13/24 09/13/24 Range/Units 22:17 22:24 22:34 WBC 11.2 H (4.5-11.0) X10^3/uL RBC 4.38 (4.0-5.2) X10^6/uL Hgb 11.4 L (12.0-16.0) g/dL Hct 35.5 L (36-46) % MCV 81.2 (80-100) fL MCH 26.1 (26-34) PG MCHC 32.1 (30-36) % RDW 14.8 (11.6-14.8) % Plt Count 165 (150-400) X10^3/uL Neut % (Auto) 67.2 (50-75) % Lymph % (Auto) 22.7 L (25-40) % [place] % (Auto) 6.9 (3-14) % Eos % (Auto) 2.2 (2-4) % Baso % (Auto) 1.0 (0-2) % Neut # (Auto) 7600 H (8098-3043) /uL Lymph # (Auto) 2600 (0936-3032) /uL [place] # (Auto) 800 (0-900) /uL Eos # (Auto) 300 (0-450) /uL Baso # (Auto) 100 (0-100) /uL PT 10.4 (9.4-12.5) SECONDS INR 0.9 (0.9-1.3) APTT 20 L (25.1-36.5) SECONDS D-Dimer 824 H (<500) ng/ml VBG pH (7.33-7.43) VBG pCO2 (45-50) mmHg VBG pO2 (35-45) mmHg VBG HCO3 (24-28) mmol/L VBG Total CO2 (24-29) mmol/L VBG O2 Saturation (70-75) % VBG Base Excess (0-4) mmol/L Sodium 135 L (137-145) mmol/L Potassium 4.0 (3.4-5.1) mmol/L Chloride 104 (98-107) mmol/L Carbon Dioxide 23 (22-32) mmol/L BUN 17 (7-17) mg/dL Creatinine 0.79 (0.52-1.04) mg/dL Estimated GFR > 60 (>60) mL/min BUN/Creatinine Ratio 21.5 (6-22) Glucose 433 H (70-99) mg/dL POC Whole Bld Glucose 434 H (70-99) mg/dL Lactate 1.5 (0.7-2.1) mmol/L Calcium 8.9 (8.4-10.2) mg/dL Total Bilirubin 0.5 (0.2-1.3) mg/dL AST 40 H (14-36) IU/L ALT 33 (<35) IU/L Alkaline Phosphatase 82 (38-126) U/L Total Protein 6.9 (6.3-8.2) g/dL Albumin 3.9 (3.5-5.0) g/dL Globulin 3.0 (1.7-4.1) g/dL Albumin/Globulin Ratio 1.3 (1.0-2.8) Procalcitonin 0.049 (<0.5) ng/mL Urine Color Urine Appearance Urine pH (4.5-8.0) Ur Specific [place] (1.000-1.035) Urine Protein (Negative) Urine Glucose (UA) (Negative) g/dL Urine Ketones (NEGATIVE) Urine Occult Blood (Negative) Urine Nitrate (Negative) Urine Bilirubin (NEGATIVE) Urine Urobilinogen (0.2) E.U./dL Ur Leukocyte Esterase (NEGATIVE) Urine RBC (0-5/HPF) Urine WBC (0-5/HPF) Ur Squamous Epith Cells (0-5/HPF) Urine Bacteria (None) Hyaline Casts (None) Ur Culture Indicated? Vol Urine Centrifuged Ketones 0.12 (<0.27) mmol/L Chlamy pneumoniae PCR Not detected (Not Detect) Adenovirus (PCR) Not detected (Not Detect) B. pertussis DNA (PCR) Not detected (Not Detect) B.parapertussis DNA PCR Not detected (Not Detecte) Coronavirus OC43 (PCR) Not detected (Not Detect) Coronavirus HKU1 (PCR) Not detected (Not Detect) Coronavirus 229E (PCR) Not detected (Not Detect) SARS-CoV-2 (PCR) Not detected (Not Detecte) Coronavirus NL63 (PCR) Not detected (Not Detect) Human Metapneumovir PCR Not detected (Not Detect) Influenza Type A (PCR) Not detected (Not Detect) Influenza Type B (PCR) Not detected (Not Detect) M. pneumoniae (PCR) Not detected (Not Detect) Parainfluenza 1 (PCR) Not detected (Not Detect) Parainfluenza 2 (PCR) Not detected (Not Detect) Parainfluenza 3 (PCR) Not detected (Not Detect) Parainfluenza 4 (PCR) Not detected (Not Detect) RSV (PCR) Not detected (Not Detect) Entero/Rhino (PCR) Not detected (Not Detect) 09/13/24 09/13/24 09/14/24 Range/Units 22:41 23:30 01:47 WBC (4.5-11.0) X10^3/uL RBC (4.0-5.2) X10^6/uL Hgb (12.0-16.0) g/dL Hct (36-46) % MCV (80-100) fL MCH (26-34) PG MCHC (30-36) % RDW (11.6-14.8) % Plt Count (150-400) X10^3/uL Neut % (Auto) (50-75) % Lymph % (Auto) (25-40) % [place] % (Auto) (3-14) % Eos % (Auto) (2-4) % Baso % (Auto) (0-2) % Neut # (Auto) (0297-3173) /uL Lymph # (Auto) (3599-0334) /uL [place] # (Auto) (0-900) /uL Eos # (Auto) (0-450) /uL Baso # (Auto) (0-100) /uL PT (9.4-12.5) SECONDS INR (0.9-1.3) APTT (25.1-36.5) SECONDS D-Dimer (<500) ng/ml VBG pH 7.44 H (7.33-7.43) VBG pCO2 31.1 L (45-50) mmHg VBG pO2 59 H (35-45) mmHg VBG HCO3 21 L (24-28) mmol/L VBG Total CO2 20 L (24-29) mmol/L VBG O2 Saturation 92 H (70-75) % VBG Base Excess -2.5 L (0-4) mmol/L Sodium (137-145) mmol/L Potassium (3.4-5.1) mmol/L Chloride (98-107) mmol/L Carbon Dioxide (22-32) mmol/L BUN (7-17) mg/dL Creatinine (0.52-1.04) mg/dL Estimated GFR (>60) mL/min BUN/Creatinine Ratio (6-22) Glucose (70-99) mg/dL POC Whole Bld Glucose 213 H D (70-99) mg/dL Lactate (0.7-2.1) mmol/L Calcium (8.4-10.2) mg/dL Total Bilirubin (0.2-1.3) mg/dL AST (14-36) IU/L ALT (<35) IU/L Alkaline Phosphatase (38-126) U/L Total Protein (6.3-8.2) g/dL Albumin (3.5-5.0) g/dL Globulin (1.7-4.1) g/dL Albumin/Globulin Ratio (1.0-2.8) Procalcitonin (<0.5) ng/mL Urine Color Yellow Urine Appearance Sl cloudy Urine pH 5.5 (4.5-8.0) Ur Specific [place] 1.015 (1.000-1.035) Urine Protein Negative (Negative) Urine Glucose (UA) 3+ H (Negative) g/dL Urine Ketones Trace H (NEGATIVE) Urine Occult Blood Negative (Negative) Urine Nitrate Positive H (Negative) Urine Bilirubin Negative (NEGATIVE) Urine Urobilinogen 0.2 (0.2) E.U./dL Ur Leukocyte Esterase Negative (NEGATIVE) Urine RBC 0-1/hpf (0-5/HPF) Urine WBC 1-5/hpf (0-5/HPF) Ur Squamous Epith Cells 5-10 /hpf H (0-5/HPF) Urine Bacteria Many (>30) H (None) Hyaline Casts 1-5/lpf (None) Ur Culture Indicated? Specimen cultured Vol Urine Centrifuged 10ml (spun) Ketones (<0.27) mmol/L Chlamy pneumoniae PCR (Not Detect) Adenovirus (PCR) (Not Detect) B. pertussis DNA (PCR) (Not Detect) B.parapertussis DNA PCR (Not Detecte) Coronavirus OC43 (PCR) (Not Detect) Coronavirus HKU1 (PCR) (Not Detect) Coronavirus 229E (PCR) (Not Detect) SARS-CoV-2 (PCR) (Not Detecte) Coronavirus NL63 (PCR) (Not Detect) Human Metapneumovir PCR (Not Detect) Influenza Type A (PCR) (Not Detect) Influenza Type B (PCR) (Not Detect) M. pneumoniae (PCR) (Not Detect) Parainfluenza 1 (PCR) (Not Detect) Parainfluenza 2 (PCR) (Not Detect) Parainfluenza 3 (PCR) (Not Detect) Parainfluenza 4 (PCR) (Not Detect) RSV (PCR) (Not Detect) Entero/Rhino (PCR) (Not Detect) 09/14/24 09/14/24 Range/Units 03:16 07:55 WBC (4.5-11.0) X10^3/uL RBC (4.0-5.2) X10^6/uL Hgb (12.0-16.0) g/dL Hct (36-46) % MCV (80-100) fL MCH (26-34) PG MCHC (30-36) % RDW (11.6-14.8) % Plt Count (150-400) X10^3/uL Neut % (Auto) (50-75) % Lymph % (Auto) (25-40) % [place] % (Auto) (3-14) % Eos % (Auto) (2-4) % Baso % (Auto) (0-2) % Neut # (Auto) (1199-7885) /uL Lymph # (Auto) (8306-1126) /uL [place] # (Auto) (0-900) /uL Eos # (Auto) (0-450) /uL Baso # (Auto) (0-100) /uL PT (9.4-12.5) SECONDS INR (0.9-1.3) APTT (25.1-36.5) SECONDS D-Dimer (<500) ng/ml VBG pH (7.33-7.43) VBG pCO2 (45-50) mmHg VBG pO2 (35-45) mmHg VBG HCO3 (24-28) mmol/L VBG Total CO2 (24-29) mmol/L VBG O2 Saturation (70-75) % VBG Base Excess (0-4) mmol/L Sodium (137-145) mmol/L Potassium (3.4-5.1) mmol/L Chloride (98-107) mmol/L Carbon Dioxide (22-32) mmol/L BUN (7-17) mg/dL Creatinine (0.52-1.04) mg/dL Estimated GFR (>60) mL/min BUN/Creatinine Ratio (6-22) Glucose (70-99) mg/dL POC Whole Bld Glucose 176 H 200 H (70-99) mg/dL Lactate (0.7-2.1) mmol/L Calcium (8.4-10.2) mg/dL Total Bilirubin (0.2-1.3) mg/dL AST (14-36) IU/L ALT (<35) IU/L Alkaline Phosphatase (38-126) U/L Total Protein (6.3-8.2) g/dL Albumin (3.5-5.0) g/dL Globulin (1.7-4.1) g/dL Albumin/Globulin Ratio (1.0-2.8) Procalcitonin (<0.5) ng/mL Urine Color Urine Appearance Urine pH (4.5-8.0) Ur Specific [place] (1.000-1.035) Urine Protein (Negative) Urine Glucose (UA) (Negative) g/dL Urine Ketones (NEGATIVE) Urine Occult Blood (Negative) Urine Nitrate (Negative) Urine Bilirubin (NEGATIVE) Urine Urobilinogen (0.2) E.U./dL Ur Leukocyte Esterase (NEGATIVE) Urine RBC (0-5/HPF) Urine WBC (0-5/HPF) Ur Squamous Epith Cells (0-5/HPF) Urine Bacteria (None) Hyaline Casts (None) Ur Culture Indicated? Vol Urine Centrifuged Ketones (<0.27) mmol/L Chlamy pneumoniae PCR (Not Detect) Adenovirus (PCR) (Not Detect) B. pertussis DNA (PCR) (Not Detect) B.parapertussis DNA PCR (Not Detecte) Coronavirus OC43 (PCR) (Not Detect) Coronavirus HKU1 (PCR) (Not Detect) Coronavirus 229E (PCR) (Not Detect) SARS-CoV-2 (PCR) (Not Detecte) Coronavirus NL63 (PCR) (Not Detect) Human Metapneumovir PCR (Not Detect) Influenza Type A (PCR) (Not Detect) Influenza Type B (PCR) (Not Detect) M. pneumoniae (PCR) (Not Detect) Parainfluenza 1 (PCR) (Not Detect) Parainfluenza 2 (PCR) (Not Detect) Parainfluenza 3 (PCR) (Not Detect) Parainfluenza 4 (PCR) (Not Detect) RSV (PCR) (Not Detect) Entero/Rhino (PCR) (Not Detect) MDM Narrative Medical decision making narrative: Dr. Nash: Received sign-out by Dr. Call, patient is a 64-year-old female with a history of noncompliant diabetes, presenting for wound to the left foot between the 3rd and 4th toe, workup so far has shown patient with cellulitis, patient did have ultrasound which was negative for DVT, patient also without any findings of PE on chest CTA, according to Dr. Call, patient is pending MRI to rule out osteomyelitis, antibiotics have already been ordered. 0815: Patient was re-evaluated, she is resting comfortably in the stretcher, on exam she has a very small ulcer with very mild erythema to the top of the foot in between the 3rd and 4th toe. There is no crepitus. CT scan of the lower extremity did not show any signs of free air or osteomyelitis, ultrasound was also negative. Patient did have slight leukocytosis of 11.2 however not meeting any other sirs or sepsis criteria. Patient states that she would rather go home with oral antibiotics and follow up with primary care as needed. CT scan did not show any signs of osteomyelitis, she is not meeting any other sepsis or sirs criteria. I did offer her to stay in the emergency department to obtain the MRI as well as possible vascular ultrasound however she states that she has ?similar to be for her . She states that she will return if symptoms are worse, she was given strict return precautions she verbalized understanding of this and agrees to being discharged home with outpatient follow up Dr. guajardo: 7:50 AM 09/16/2024 changed abx from doxycycline to ciprofloxacin 500mg po bid x 7 days due to urine culture and sensitivity report growing klebiella pneumoniae and being sensitive to cipro, patient informed by nurse Discharge Plan Departure Patient Disposition: Home Clinical Impression: Diabetic foot ulcer Instructions: DI for Diabetic Foot Ulcer, DI for Wound Infection Activity Restrictions/Additional Instructions: Please follow up with your primary care doctor in a proximally 1 week to have your ulcer/skin infection re-evaluated, please follow up with Orthopedic surgery as needed Please return immediately to the emergency department if your symptoms get worse Please read the discharge instructions sheet carefully and bring all papers to all doctor follow-up visits, as it may contain information that your doctor may want to see. Disease processes change and evolve, if your symptoms worsen or if you develop any new symptoms that are concerning to you please return for evaluation. Your evaluation today does not show any evidence of any life-threatening/serious illnesses requiring admission to the hospital or surgery. Please follow-up with your doctor for re-evaluation in approximately 1 day. Seek immediate medical attention for any worrisome symptoms. *If you do not have a primary care provider please contact the [facility] Resource line at [phone]. They will ask some questions about your medical history and help get you set up with a doctor in the community. Prescriptions: New doxycycline hyclate 100 mg capsule 100 mg PO BID 7 Days Qty: 14 0RF ciprofloxacin HCl 500 mg tablet 500 mg PO BID Qty: 14 0RF Stand Alone Forms: Patient Portal/API ED Sign-out <Gume Call MD - Last Filed: 09/14/24 06:37> Sign Out Provider Sign Out Attestation: I HANDED OFF CARE TO MY COLLEAGUE AT 7:00 A.M. AT THAT POINT THE PATIENT'S MRI OF HER FOOT WAS PENDING TO DETERMINE HER DISPOSITION OR NEED FOR TRANSFER.
--- NOTE | 2024-09-14 06:55 | DI.US.S_ITS ---
PROCEDURE: US ARTERIAL DUPLEX LE LT INDICATIONS: assess for vascular status TECHNIQUE: Color and pulse Doppler interrogation was performed of the left lower extremity arterial system, with image documentation. COMPARISON: None. FINDINGS: Common femoral artery: 123 cm/sec, with biphasic flow. Deep femoral artery: 108 cm/sec, with biphasic flow. Proximal superficial femoral artery: 111 cm/sec, with triphasic flow. Mid superficial femoral artery: 68 cm/sec, with biphasic flow. Distal superficial femoral artery: 68 cm/sec, with biphasic flow. Popliteal artery: 34 cm/sec, with biphasic flow. Posterior tibial artery: 30 cm/sec, with monophasic flow. Anterior tibial artery/dorsalis pedis: 21 cm/sec, with monophasic flow. Richardson-scale imaging description: Scattered atherosclerotic plaque. IMPRESSION: No hemodynamically significant stenosis by peak systolic velocity criteria. Dictated by: Luis Mathews M.D. on 09/14/2024 at 8:37 Approved by: Luis Mathews M.D. on 09/14/2024 at 8:39
[2024-09-14] MEDS: INSULIN LISPRO 100 UNIT/ML 3ML VIAL SUBCUT (08:06)
--- NOTE | 2024-09-14 08:29 | PC.NURSE ---
Vancomycin completed. Noted to have bruising and redness abound IV site. Per NOC shift RN May, when initial abx, levaquin infusing she did not note any redness or bruising at that time. Pt denies pain to site. IV removed. made aware. No new orders. Educated while at home to make sure she is assessing site and to return if increased redness or swelling occurs.
== END 2024-09-14 08:34 | disposition home or self-care (01) ==
PROVIDERS: Emergency Medicine; Emergency Provider Student in an Organized Health Care Education/Training Program
DX: E10.621 Type 1 diabetes mellitus with foot ulcer (principal)
CPT/HCPCS: 36415; 71045; 71275; 73701; 74177; 80053; 81001; 82009; 82805; 82962; 83605; 84145; 85025; 85379; 85610; 85730; 87040; 87070; 87075; 87077; 87086; 87147; 87186; 87205; 87633; 93005; 93926; 93970; 96361; 96365; 96366; 96367; 96372; 96375; 99284; J1956; J2405; Q9967